=== PATIENT | female | born 1945 | race Caucasian/White ===

== ENCOUNTER 2025-04-10 16:26 | Observation (INO) | payer MEDICARE, SELFPAY ==
[2025-04-10] VITALS (12 sets, daily range): BP systolic 134–169; BP diastolic 61–88; PULSE 74–90; RESP 16–29; TEMP 36.7–37.4; O2SAT 92–98; BMI 24.4
--- NOTE | 2025-04-10 17:04 | ED.GENADULT ---
HPI - General Adult General Chief complaint: Altered Mental Status Stated complaint: AMS, more combative Time Seen by Provider: 04/10/25 16:26 History of Present Illness HPI narrative: This is an 79-year-old female presenting to ED for chief complaint of altered mental status. She was sent by the nursing because she is becoming more altered therefore less combative. Patient has had cough. She cannot provide me any information on how she feels or why she is in the emergency department. She does verbalize I do not know. Patient is comfort measures only. Related Data Home Medications ?Medication ?Instructions ?Recorded ?Confirmed ?Last Taken ?Type carvedilol 3.125 mg tablet 3.125 mg PO Q12H 04/10/25 04/10/25 Unknown History clopidogrel 75 mg tablet 75 mg PO DAILY 04/10/25 04/10/25 Unknown History divalproex 250 mg tablet,extended 250 mg PO DAILY 04/10/25 04/10/25 Unknown History release 24 hr quetiapine 25 mg tablet 25 mg PO BID 04/10/25 04/10/25 Unknown History rosuvastatin 20 mg tablet 20 mg PO DAILY 04/10/25 04/10/25 Unknown History Allergies Allergy/AdvReac Type Severity Reaction Status Date / Time Sulfa (Sulfonamide Allergy Unknown Verified 04/10/25 16:36 Antibiotics) [facility] Past Medical History Medical History (Updated 04/11/25 @ 01:56 by Teri Godfrey DO) Alzheimer's dementia with behavioral disturbance Bilateral hearing loss Non-STEMI (non-ST elevated myocardial infarction) (~01/2025) Breast cancer Surgical History Surgical History (Updated 04/11/25 @ 01:49 by Teri Godfrey DO) H/O lumpectomy Social History Social History (Updated 04/11/25 @ 01:51 by Teri Godfrey DO) Social History: The patient has resided at [facility] for 3 years. She has a daughter and a son who is both come and visited her in the hospital this evening. She has a distant history of smoking for few years. She is a retired OR nurse. Code status: DNR/DNI Healthcare power of county attorney: Lashon (daughter) Smoking status: Former smoker Alcohol intake: never Substance use: never Spiritual care concerns: No Exam Narrative: APPEARANCE: No apparent distress. A&O x1 Head: atraumatic. EYES: EOMI, NOSE: Atraumatic NECK: Trachea midline RESPIRATORY: Tachypneic, diffuse rhonchi CARDIOVASCULAR: RRR, no peripheral edema ABDOMINAL: Non-distended soft nontender MUSCULOSKELETAl: No obvious deformities NEURO: Alert. Moving 4/4 extremities SKIN:: Warm, dry. Normal color PSYCHIATRIC: Normal affect Course Vital Signs Vital signs: Vital Signs Temperature 99.3 F 04/10/25 16:26 Pulse Rate 90 04/10/25 16:26 Respiratory Rate 26 H 04/10/25 16: Blood Pressure 169/83 H 04/10/25 16:26 Pulse Oximetry 98 04/10/25 16:26 Oxygen Delivery Room Air 04/10/25 16:26 Temperature 99.1 F 04/11/25 06:00 Pulse Rate 83 04/11/25 08:00 Respiratory Rate 18 04/11/25 08:00 Blood Pressure 149/61 H 04/11/25 06:00 Pulse Oximetry 96 04/11/25 08:00 Oxygen Delivery Room Air 04/11/25 08:00 Medical Decision Making MDM Narrative Medical decision making narrative: -Course: 79-year-old female with dementia presenting for altered mental status. Patient has rhonchi and a harsh hacking cough. Highly suspicious for pneumonia. Patient is comfort measures only. Goals of care were discussed with the patient's family members. Given her poor quality of life, severe dementia they have opted for a hospice referral. The stay the patient was very uncomfortable due to her hacking cough the patient is given Robitussin and morphine. YASMIN was consulted. patient will be discharged for hospice care. -DDX includes but is not limited to: Pneumonia sepsis dehydration viral syndrome bronchitis Vital Signs Vital Signs: Vital Signs Temperature 99.3 F 04/10/25 16:26 Pulse Rate 90 04/10/25 16:26 Respiratory Rate 26 H 04/10/25 16:26 Blood Pressure 169/83 H 04/10/25 16:26 Pulse Oximetry 98 04/10/25 16:26 Oxygen Delivery Room Air 04/10/25 16:26 Temperature 99.1 F 04/11/25 06:00 Pulse Rate 83 04/11/25 08:00 Respiratory Rate 18 04/11/25 08:00 Blood Pressure 149/61 H 04/11/25 06:00 Pulse Oximetry 96 04/11/25 08:00 Oxygen Delivery Room Air 04/11/25 08:00 Discharge Plan Discharge Clinical Impression: Altered mental status Pneumonia Qualifiers: Pneumonia type: due to unspecified organism Laterality: bilateral Lung location: unspecified part of lung Qualified Code(s): J18.9 - Pneumonia, unspecified organism Patient Disposition: Still a Patient Condition: Stable
[2025-04-10] MEDS: MORPHINE SULFATE (*CRX) 4 MG/ML INJ IV PUSH (18:07)
--- NOTE | 2025-04-10 20:49 | PC.NURSE ---
family hospice at bedside for consult
--- NOTE | 2025-04-10 21:06 | PC.NURSE ---
[facility] [phone] will admit friday04/11/25
--- NOTE | 2025-04-10 22:54 | ADMGEN ---
This patient, Sylvie Michaels, was admitted to Medical Room 345-. Patient/family oriented to hospital policies and general routines including ID bracelet, bed and alarms, visiting hours, pain management, procedures, bathroom and other care routines, personal items, smoking policy, room service/diet, and visiting hours. Information on how to activate the Rapid Response Team has been discussed. Patient/Family are encouraged to report perceived risks to care and to ask questions if they do not understand what they are told or what they should do.
[2025-04-10] MEDS: guaiFENesin/CODEINE (*CRX) 200/20 MG 10 ML SYRUP PO ×2 (23:15→23:28)
--- NOTE | 2025-04-11 00:32 | P.HP_ITS ---
H&P: HPI History of Present Illness Date/Time: 04/10/25 23:40 Chief Complaint: Worsening cough Narrative: 79-year-old female with a past medical history of dementia with behaviors and recent non STEMI who presented to the ER from [facility] due to worsening cough and less combative than usual. The patient's daughter and granddaughter at bedside and provided the entirety of history. The patient has had dementia for many years and transition from independent living 4 years ago to assisted living for 1 year. Subsequently 3 years ago her dementia had progressed to the point that she had to go to [facility] and she has been there since that time. Family reports that her weight has been stable. The patient is still ambulatory and able to eat by herself. She does not use a walker or a cane. She recognizes her daughter most of the time. She is usually able to feed herself. However 1 week ago she became ill with upper respiratory symptoms. She had outpatient chest x-ray that was reportedly normal. However today staff called the family when the patient was having increased cough. The patient was confused and was unable to understand how to feed herself. She was so weak that she could not get out of bed. She is usually combative as she has dementia with behaviors. But she was so weak and confused that she was less combative. Family denies the patient having any recent fever. Patient's daughter is at bedside and confirms that patient is comfort measures only. They want the patient transition to hospice. However Juanjose was not able to arrange for medications and supplies at the patient's facility tonight and subsequently patient was admitted the hospital until arrangements could be made. Patient received morphine and Robitussin in the ER with significant improvement in her cough. Review of Systems Review of Systems: ROS unobtainable: Yes unobtainable due to mental status [facility] Past Medical History Medical History (Updated 04/11/25 @ 01:56 by Teri Godfrey DO) Alzheimer's dementia with behavioral disturbance Bilateral hearing loss Non-STEMI (non-ST elevated myocardial infarction) (~01/2025) Breast cancer Surgical History Surgical History (Updated 04/11/25 @ 01:49 by Teri Godfrey DO) H/O lumpectomy Social History Social History (Updated 04/11/25 @ 01:51 by Teri J. Hopen, DO) Social History: The patient has resided at [facility] for 3 years. She has a daughter and a son who is both come and visited her in the hospital this evening. She has a distant history of smoking for few years. She is a retired OR nurse. Code status: DNR/DNI Healthcare power of reservations sales supervisor: Lashon (daughter) Smoking status: Former smoker Alcohol intake: never Substance use: never Spiritual care concerns: No Meds Home Medications and Allergies Home Medications ?Medication ?Instructions ?Recorded ?Confirmed ?Type carvedilol 3.125 mg tablet 3.125 mg PO Q12H 04/10/25 04/10/25 History clopidogrel 75 mg tablet 75 mg PO DAILY 04/10/25 04/10/25 History divalproex 250 mg tablet,extended 250 mg PO DAILY 04/10/25 04/10/25 History release 24 hr quetiapine 25 mg tablet 25 mg PO BID 04/10/25 04/10/25 History rosuvastatin 20 mg tablet 20 mg PO DAILY 04/10/25 04/10/25 History Allergies Allergy/AdvReac Type Severity Reaction Status Date / Time Sulfa (Sulfonamide Allergy Unknown Verified 04/10/25 16:36 Antibiotics) Vital Signs Vital Signs - 24 hr 04/10/25 16:26 04/10/25 16:37 04/10/25 16:45 Temperature 99.3 F Pulse Rate 90 84 87 Respiratory Rate 26 H 23 H 21 H Blood Pressure 169/83 H Pulse Oximetry 98 97 95 Oxygen Delivery Room Air 04/10/25 17:00 04/10/25 17:01 04/10/25 17:15 Temperature Pulse Rate 81 83 87 Respiratory Rate 21 H 16 17 Blood Pressure 134/81 Pulse Oximetry 94 95 96 Oxygen Delivery 04/10/25 17:30 04/10/25 17:31 04/10/25 17:32 Temperature Pulse Rate 89 86 87 Respiratory Rate 29 H 19 21 H Blood Pressure 158/88 H Pulse Oximetry 97 96 96 Oxygen Delivery 04/10/25 21:40 04/10/25 22:20 04/10/25 23:25 Temperature 98.9 F 98.9 F 98.1 F Pulse Rate 88 88 74 Respiratory Rate 20 20 18 Blood Pressure 143/83 H 143/84 H 143/61 H Pulse Oximetry 92 92 96 Oxygen Delivery Exam Narrative: Weight 64.5 kg BMI 24.4 Const: Other: Well-developed well-nourished, sitting completely upright in bed, elderly, mild distress due to coughing HENMT: Other: Mucous membranes are tacky, good dentition, head is normocephalic atraumatic Eyes: Other: Pupils are equal and reactive, no scleral icterus Neck: Other: No lymphadenopathy, nontender to palpation Resp: Other: Coarse rhonchi bilaterally, tachypnea, frequent cough Cardio: Other: Regular rate, regular rhythm, 2+ bilateral radial pedal pulses, no JVD GI: Other: Soft, nontender, nondistended, positive bowel sounds Skin: Other: Generalized pallor, non jaundice Neuro: Other: Alert oriented to self only, hard of hearing Extrem: Other: No clubbing, cyanosis or edema Psych: Other: Pleasantly confused, cooperative Assessment and Plan Assessment and plan (1) Pneumonia: Qualifiers: Pneumonia type: due to unspecified organism Laterality: bilateral Lung location: unspecified part of lung Qualified Code(s): J18.9 - Pneumonia, unspecified organism Code(s): J18.9 - Pneumonia, unspecified organism Status: Acute (2) Alzheimer's dementia with behavioral disturbance: Code(s): G30.9 - Alzheimer's disease, unspecified; F02.818 - Dementia in other diseases classified elsewhere, unspecified severity, with other behavioral disturbance Status: Acute Plan Patient has pneumonia which precipitated acute metabolic encephalopathy and a cute decompensation in capacity to care for self in the setting of dementia with behaviors. The patient's family wants to proceed with comfort based care. Hospice has been consulted but cannot be arranged until tomorrow. Patient has been admitted for comfort measures. Will start the patient on guaifenesin with codeine for her persistent hacking cough. If this does not work for the patient's cough Roxanol has also been provided. Will also give sublingual Ativan as needed for agitation. Glycopyrrolate as needed for secretions. The family was wanting IV pain medications I explained that since patient is not likely to qualify for inpatient hospice it would be better if we started the patient on sublingual medications in titrated the sublingual medications until affective as then we would know the patient's symptoms could be controlled this way prior to discharge. Family including patient's daughter and granddaughter at bedside voiced understanding with plan and were agreeable to proceed. Patient has been admitted as observation status. MEDICAL DECISION MAKING NARRATIVE -Spoke with the ED provider in detail regarding patient's evaluation, workup and management -Patient seen and examined at bedside -Collaborated with patient's nurse at the bedside in detail and addressed all concerns -ED/Consult/Nursing/Ancilliary notes on the chart reviewed and appreciated -Spoke with patient/family at the bedside and answered all questions Quality If No VTE Prophylaxis Answer both mechanical and pharmacologic: Reason no mechanical VTE proph: patient/caregiver refusal Reason no pharmacologic proph: patient/caregiver refusal Hospitalist MIPS Advance Care Plan I have confirmed that the patient's Advanced Care Plan is present, code status is documented, or surrogate decision maker is listed in patient medical record.: Yes Medication Reconciliation I have utilized all available resources to obtain, update and review the patients current medications (includes all prescriptions, OTC, herbals, cannabis, and nutritional supplements).: Yes
[2025-04-11 06:00] VITALS: BP 149/61; PULSE 83; RESP 18; TEMP 37.3; O2SAT 96
[2025-04-11 08:00] VITALS: PULSE 83; RESP 18; O2SAT 96
[2025-04-11] MEDS: QUEtiapine FUMARATE 25 MG TABLET PO (09:00)
[2025-04-11] MEDS: guaiFENesin/CODEINE (*CRX) 200/20 MG 10 ML SYRUP PO (09:00)
[2025-04-11] MEDS: carvediloL 3.125 MG TABLET PO (09:01)
[2025-04-11] MEDS: GLYCOPYRROLATE 1 MG TABLET PO (09:01)
[2025-04-11] MEDS: DIVALPROEX SODIUM ER 250 MG TAB.24H PO (09:11)
--- NOTE | 2025-04-11 10:32 | PC.NURSE ---
Bladder scan results 157mls.
--- NOTE | 2025-04-11 11:26 | PM.DS ---
DS: Admitting Diagnosis Discharge Date 04/11/25 Admitting Diagnosis Comfort measure planning, hospice set-up DS: Discharge Diagnosis Discharge Diagnosis (1) Pneumonia: Qualifiers: Laterality: bilateral Lung location: unspecified part of lung Pneumonia type: due to unspecified organism Qualified Code(s): J18.9 - Pneumonia, unspecified organism Code(s): J18.9 - Pneumonia, unspecified organism Status: Acute (2) Alzheimer's dementia with behavioral disturbance: Code(s): G30.9 - Alzheimer's disease, unspecified; F02.818 - Dementia in other diseases classified elsewhere, unspecified severity, with other behavioral disturbance Status: Acute DS: Summary Hospital Course Reason for hospitalization: Worsening cough Hospital Course: 79-year-old female with a past medical history of dementia with behaviors and recent non STEMI who presented to the ER from [facility] due to worsening cough and less combative than usual. The patient's daughter and granddaughter at bedside and provided the entirety of history. The patient has had dementia for many years and transition from independent living 4 years ago to assisted living for 1 year. Subsequently 3 years ago her dementia had progressed to the point that she had to go to [facility] and she has been there since that time. Family reports that her weight has been stable. The patient is still ambulatory and able to eat by herself. She does not use a walker or a cane. She recognizes her daughter most of the time. She is usually able to feed herself. However 1 week ago she became ill with upper respiratory symptoms. She had outpatient chest x-ray that was reportedly normal. However today staff called the family when the patient was having increased cough. The patient was confused and was unable to understand how to feed herself. She was so weak that she could not get out of bed. She is usually combative as she has dementia with behaviors. But she was so weak and confused that she was less combative. Family denies the patient having any recent fever. Patient's daughter is at bedside and confirms that patient is comfort measures only. They want the patient transition to hospice. However Juanjose was not able to arrange for medications and supplies at the patient's facility tonight and subsequently patient was admitted the hospital until arrangements could be made. Patient received morphine and Robitussin in the ER with significant improvement in her cough. Patient has underlying pneumonia which has been precipitated by acute metabolic encephalopathy and acute decompensation incapacity to care for herself in setting of dementia. Hospice has been consulted and the patient has been set up for home hospice care at this time. Patient was started on codeine and guaifenesin for persistent hacking cough. Patient will be discharged on home hospice. Will give prescription for guaifenesin for p.r.n. cough control. Family is amenable to this plan. Status at Discharge Functional status at discharge: uses cane/walker Overall status at discharge: patient is back to baseline Time Spent with Patient Time attestation: Total time spent providing and/or coordinating discharge services:30 Exam Narrative: Weight 64.5 kg BMI 24.4 Const: Other: Well-developed well-nourished, sitting completely upright in bed, elderly, mild distress due to coughing HENMT: Other: Mucous membranes are tacky, good dentition, head is normocephalic atraumatic Eyes: Other: Pupils are equal and reactive, no scleral icterus Neck: Other: No lymphadenopathy, nontender to palpation Resp: Other: Coarse rhonchi bilaterally, tachypnea, frequent cough Cardio: Other: Regular rate, regular rhythm, 2+ bilateral radial pedal pulses, no JVD GI: Other: Soft, nontender, nondistended, positive bowel sounds Skin: Other: Generalized pallor, non jaundice Neuro: Other: Alert oriented to self only, hard of hearing Extrem: Other: No clubbing, cyanosis or edema Psych: Other: Pleasantly confused, cooperative Discharge Plan Discharge Attending physician on discharge: Yeimy Ordaz Consulting providers: Joshua Armas Discharging Clinician: Joshua Armas Anticipated Discharge Date/Time: 04/11/25 11:24 Patient Disposition: Hospice - Home Activity: as tolerated Diet: as tolerated Discharge Instructions: Discharge disposition: Stable Take medications as prescribed Monitor blood pressures Take caution while standing, rising, or moving Change positions slowly taking a break between each position change If you standing feel dizzy sit back down and take a break Encouraged to continue with yearly vaccinations Return to the emergency department if he developed sudden shortness of breath, chest pain, nausea, vomiting, upset stomach or intractable diarrhea Return to the emergency department if you develop fever greater than 101.[address] [facility] for your healthcare needs Patient Language: Welsh Stand Alone Forms: General Discharge Information Follow-up/Referrals: UNKNOWN,DOCTOR [Primary Care Provider] - Discharge Medications: New guaifenesin 100 mg/5 mL liquid 200 mg PO Q4H PRN (Reason: cough) Qty: 118 0RF Continued carvedilol 3.125 mg tablet 3.125 mg PO Q12H clopidogrel 75 mg tablet 75 mg PO DAILY divalproex 250 mg tablet extended release 24 hr 250 mg PO DAILY quetiapine 25 mg tablet 25 mg PO BID rosuvastatin 20 mg tablet 20 mg PO DAILY Date of admission: 04/10/25 21:10 Primary Care Provider: UNKNOWN,DOCTOR Admitting Provider: Teri Godfrey Attending physician on admission: Teri Godfrey Condition: Stable
== END 2025-04-11 15:52 | disposition hospice, home (50) ==
LOC: ANHED 18:13 → ANH3MED 04-11 01:14
PROVIDERS: Admitting Provider Internal Medicine; Emergency Provider Emergency Medicine; Visit Provider Internal Medicine
DX: J18.9 Pneumonia, unspecified organism (principal); G30.9 Alzheimer's disease, unspecified; F02.818 Dementia in other diseases classified elsewhere, unspecified severity, with other behavioral disturbance; H91.93 Unspecified hearing loss, bilateral; I25.2 Old myocardial infarction; Z66 Do not resuscitate; Z85.3 Personal history of malignant neoplasm of breast; Z87.891 Personal history of nicotine dependence
CPT/HCPCS: 96374; 99285; A9270; G0378; J2270